=== PATIENT | female | born 1995 | race Native Hawaiian/Other Pacific Islander ===

== ENCOUNTER 2022-10-17 14:07 | Outpatient (CLI) | payer OTHER | END 2022-10-17 19:00 | LOC: RAD 14:07 | PROVIDERS: ATTEND Internal Medicine | DX: R10.9 Unspecified abdominal pain (principal); R14.0 Abdominal distension (gaseous) ==

== ENCOUNTER 2022-10-31 08:25 | Outpatient (CLI) | payer OTHER | END 2022-10-31 22:04 | disposition home or self-care (01) | LOC: CT 08:25 | PROVIDERS: ATTEND Internal Medicine | DX: R10.9 Unspecified abdominal pain (principal); R14.0 Abdominal distension (gaseous); R11.0 Nausea | CPT/HCPCS: Q9963 ==